=== PATIENT | female | born 2000 | race Caucasian/White ===

== ENCOUNTER → 2020-09-30 | Outpatient (CLI) | payer OTHER ==
--- NOTE | 2020-09-30 16:14 | REP ---
INDICATION: S/P FOOT INJURY R/O FX COMPARISON: None. TECHNIQUE: AP, lateral, bilateral oblique views right foot. FINDINGS: The osseous structures and joint spaces are intact and normal. There is no evidence for acute fracture or dislocation. Surrounding soft tissues are unremarkable. No subcutaneous emphysema or radiodense foreign body. IMPRESSION: . No acute fracture or dislocation. <Electronically signed by Wilton Hale > 09/30/20 [id number]
== END ==
LOC: M RAD 15:51
PROVIDERS: ATTEND Physician Assistant Medical
DX: S99.921A Unspecified injury of right foot, initial encounter (principal); X58.XXXA Exposure to other specified factors, initial encounter; Y92.89 Other specified places as the place of occurrence of the external cause

== ENCOUNTER 2021-05-12 19:46 | Outpatient (CLI) | payer OTHER ==
[~2021-05-12] VITALS: Ht 167.6 cm; Wt 116.0 kg
[2021-05-12 20:32] VITALS: BP 124/59
[2021-05-12 21:17] LABS: APPEARANCE, URINE HAZY (CLEAR); BACTERIA, URINE AUTO 2+ (NEGATIVE); BILIRUBIN, URINE AUTO NEGATIVE (NEGATIVE); BLOOD, URINE BLOOD NEGATIVE (NEGATIVE); COLOR, URINE STRAW (YELLOW); GLUCOSE, URINE (UA) AUTO NEGATIVE (NEGATIVE); KETONE, URINE AUTO NEGATIVE (NEGATIVE); LEUKOCYTE ESTERASE, URINE AUTO 3+ (NEGATIVE); NITRITE, URINE AUTO NEGATIVE (NEGATIVE); PROTEIN, URINE AUTO NEGATIVE (NEGATIVE); RBC, URINE AUTO 2 /HPF (0-3); SPECIFIC GRAVITY URINE AUTO 1.002 (1.002-1.035); SQUAMOUS EPITHELIAL CELL UR AU 3 /HPF (0-6); UROBILINOGEN, URINE AUTO 0.2 mg/dL (0.0-2.0); WBC, URINE AUTO 10 /HPF (0-3)
[2021-05-12 22:28] VITALS: BP 137/67
--- NOTE | 2021-05-13 01:29 | REPVR ---
PROCEDURE INFORMATION: Exam: US , Limited Exam date and time: 05/12/2021 11:56 PM Age: 20 years old Clinical indication: Other: contractions; ; Additional info: ctxs edwina twins/cervical length TECHNIQUE: Imaging protocol: Real-time ultrasound of the maternal uterus with image documentation. Exam focused on the clinical indication. COMPARISON: No relevant prior studies available. FINDINGS: Gestation: Twin viable intrauterine gestation. heart rate: heart rate of twin A is 147 bpm. heart rate of twin B is 153 bpm. Placenta: Anterior placenta. Amniotic fluid: Normal amount of amniotic fluid for twin A with deepest pocket measuring 4.4 cm. Normal amount of amniotic fluid for twin B with deepest pocket measuring 6.2 cm. DOPPLER: Umbilical artery Doppler: Umbilical artery resistive index for twin B is 0.67 with S/D ratio of 3. Umbilical artery resistive index for twin A is 0.66 with S/D ratio of 2.95. MATERNAL: Cervix: Cervical length is 5.3 cm. No placenta previa. IMPRESSION: Twin viable intrauterine gestation. Cervical length is 5.3 cm. No placenta previa. PROCEDURE INFORMATION: Exam: US Biophysical Profile Without Non-Stress Test Exam date and time: 05/12/2021 11:56 PM Age: 20 years old Clinical indication: Other: contractions; ; Additional info: ctxs edwina twins/cervical length TECHNIQUE: Imaging protocol: US biophysical profile without non-stress testing. COMPARISON: No relevant prior studies available. FINDINGS: BIOPHYSICAL PROFILE: Breathin/2 Gross body movements: 2/2 tone: 2/2 Qualitative amniotic fluid: 2/2 Biophysical Profile Score: 8/8 IMPRESSION: Biophysical profile score is 8 out of 8 for both twins. Electronically signed by: Chemo Rock On 05/13/2021 01:28:25 AM
--- NOTE | 2021-05-13 06:14 | IPNPDOC ---
Text Note Date of Service The patient was seen on 05/13/21. NOTE Item Value Date Time Fibronectin NEGATIVE 05/12/212058 Bad table Vital Signs Label Value Date Time Pulse 97 05/12/212227 Respiratory Rate 17 bpm 05/12/212227 Blood Pressure Assessment 137/67 (90) 05/12/212227 Source Automatic Cuff (NIBP) Blood Pressure Assessment 124/59 (80) 05/12/212031 Source Automatic Cuff (NIBP) Respiratory Rate 18 bpm 05/12/212031 Pulse 95 05/12/212031 Patient Temperature 98.2 degrees F 05/12/212031 Temperature Source Temporal 05/12/21203105/12/21 20 YO LMP 10/14/20EDC BY EARLY US 14.2 WEEKS 08/05/2021 SEEN IN TRIAGE HISTORY CONTRACTIONS AT 28 WEEKS NO VAGINAL BLEEDING NO LOSS OF FLUID . NOTED DI/DI TWINS RISK FACTORS DI/DI TWINS ANXIETY DEPRESION BMI 36.2 EXAMINATION NO ACUTE DISTRESS NO LOSS OF FLUID OR VAGINAL BLEEDING PLAN US RE BPP X 2 NST X 2 FFN IF STABLE MAINTAIN APPOINTMENT AND PATIENT DID NOT DO 28 WEEKS LABS IMPRESSED NEED TO DO DISCHARGE UNDELIVERED NAME: STEPHAN FOUNTAIN DATE OF : 2000 BUSINESS NUMBER: [id number] AGE: 20 SEX: F REPORT #: [id number] ROOM: [facility] TECHNOLOGIST: [facility] DOCTOR: Dionicio Camejo MD Ordered for Date&Time: 05/12/212052 cc: [~ rep ct ivnm] Service Date&Time: 05/12/21 1825 EXAMINATION REQUESTED: BPP W/O NON STRESS TEST REASON FOR PATIENT VISIT: LABOR CHECK REASON FOR EXAMINATION: CTXS Dahlia TWINS/CERVICAL LENGTH PROCEDURE INFORMATION: Exam: US , Limited Exam date and time: 05/12/2021 11:56 PM Age: 20 years old Clinical indication: Other: contractions; ; Additional info: ctxs dahlia twins/cervical length TECHNIQUE: Imaging protocol: Real-time ultrasound of the maternal uterus with image documentation. Exam focused on the clinical indication. COMPARISON: No relevant prior studies available. FINDINGS: Gestation: Twin viable intrauterine gestation. heart rate: heart rate of twin A is 147 bpm. heart rate of twin B is 153 bpm. Placenta: Anterior placenta. Amniotic fluid: Normal amount of amniotic fluid for twin A with deepest pocket measuring 4.4 cm. Normal amount of amniotic fluid for twin B with deepest pocket measuring 6.2 cm. DOPPLER: Umbilical artery Doppler: Umbilical artery resistive index for twin B is 0.67 with S/D ratio of 3. Umbilical artery resistive index for twin A is 0.66 with S/D ratio of 2.95. MATERNAL: Cervix: Cervical length is 5.3 cm. No placenta previa. IMPRESSION: Twin viable intrauterine gestation. Cervical length is 5.3 cm. No placenta previa. PROCEDURE INFORMATION: Exam: US Biophysical Profile Without Non-Stress Test Exam date and time: 05/12/2021 11:56 PM Age: 20 years old Clinical indication: Other: contractions; ; Additional info: ctxs dahlia twins/cervical length TECHNIQUE: Imaging protocol: US biophysical profile without non-stress testing. COMPARISON: No relevant prior studies available. FINDINGS: BIOPHYSICAL PROFILE: Breathin/2 Gross body movements: 2/2 tone: 2/2 Qualitative amniotic fluid: 2/2 Biophysical Profile Score: 8/8 IMPRESSION: Biophysical profile score is 8 out of 8 for both twins. Electronically signed by: Chemo Rock On 05/13/2021 01:28:25 AM DD: CHEMO ROCK MD 05/12/21 2356 DT: GILBERTO 05/13/21127 DS: MARY 05/13/21127 [~ rep ct labl] VS,Fishbone, I+O VS, Fishbone, I+O Vital Signs Date Time Temp Pulse Resp B/P (MAP) Pulse Ox O2 Delivery O2 Flow Rate FiO2 05/12/21 22:28 97 17 137/67 (90) Room Air 05/12/21 20:32 98.2 Dionicio Camejo MD May 13, 2021 00:54
== END 2021-05-13 00:15 | disposition home or self-care (01) ==
LOC: M LDO 19:46
PROVIDERS: ATTEND Obstetrics & Gynecology
DX: O30.043 Twin pregnancy, dichorionic/diamniotic, third trimester (principal); Z3A.28 28 weeks gestation of pregnancy; O60.03 Preterm labor without delivery, third trimester; O99.213 Obesity complicating pregnancy, third trimester; E66.9 Obesity, unspecified; O99.343 Other mental disorders complicating pregnancy, third trimester; F41.9 Anxiety disorder, unspecified; F32.9 Major depressive disorder, single episode, unspecified; Z79.899 Other long term (current) drug therapy; Z68.36 Body mass index [BMI] 36.0-36.9, adult
CPT/HCPCS: 59025; 76815; 76817; 76819; 76820; 81001; 82731; G0378; G0463

== ENCOUNTER 2021-07-23 07:23 | Inpatient (IN) | payer OTHER ==
[~2021-07-23] VITALS: Ht 167.6 cm; Wt 119.4 kg
[2021-07-23] VITALS (8 sets, daily range): BP systolic 108–138; BP diastolic 52–66
[~2021-07-23 07:23] MED LIST: ASPI81CH33 PO; BENA25CA4 PO; SERT25TA21 PO
[2021-07-23] MEDS ORDERED: PRENTAB9 PO (07:44)
[2021-07-23] MEDS ORDERED: TUMS500C PO (07:46)
[2021-07-23] MEDS ORDERED: HOME MED LIST COMPLETE! XX SCH (07:50)
[2021-07-23] MEDS ORDERED: OXYTOCIN DRIP 30 UNITS in IV 1 EA IV PRN ×4 (08:00)
[2021-07-23] MEDS ORDERED: ceFAZolin SOD 2 GM in IV 1 EA IV ONE (08:00)
[2021-07-23] MEDS ORDERED: LR 1,000 ML IV SCH ×3 (08:00→11:40)
[2021-07-23] MEDS ORDERED: BICITRA 30ML SOLN UDC PO ONE (08:00)
[2021-07-23 08:38] LABS: HEMATOCRIT 31.7 % (36.0-47.0); HEMOGLOBIN 9.9 g/dl (12.0-15.5); MEAN CORPUSCULAR HEMOGLOBIN 24.8 pg (27.0-33.0); MEAN CORPUSCULAR HGB CONC 31.2 g/dl (32.0-36.5); MEAN CORPUSCULAR VOLUME 79.4 fl (80.0-96.0); PLATELET COUNT, AUTOMATED 186 10^3/uL (150-450); RED BLOOD COUNT 3.99 10^6/uL (4.00-5.40); WHITE BLOOD COUNT 8.9 10^3/uL (4.0-10.0)
[2021-07-23] MEDS ORDERED: MORPHINE PRES-FREE INJ 10 MG/10 ML VIAL (J2274) As Ordered ONE (09:06)
[2021-07-23] MEDS ORDERED: OXYTOCIN 30 UNITS IN 0.9% NaCl 500ML IV BAG (J2590) As Ordered ONE ×2 (09:08→11:16)
[2021-07-23] MEDS ORDERED: PHENYLephrine 500MCG 5ML (100MCG/ML) SYRINGE As Ordered ONE (09:10)
[2021-07-23] MEDS ORDERED: ePHEDrine SULFATE 25 MG/5 ML(5MG/ML) SYRINGE As Ordered ONE ×3 (09:10→11:31)
[2021-07-23] MEDS ORDERED: KETOROLAC 60MG 2ML VIAL As Ordered ONE (09:10)
[2021-07-23] MEDS ORDERED: dexameTHASONE 4 MG/ML 1ML VIAL (J1100 PER 1MG) As Ordered ONE (09:10)
[2021-07-23] MEDS ORDERED: ONDANSETRON 4MG/2ML VIAL As Ordered ONE (09:10)
[2021-07-23] MEDS ORDERED: METOCLOPRAMIDE INJ 10MG/2ML VIAL (J2765 PER 1) IV PRN ×2 (09:37→11:40)
[2021-07-23] MEDS ORDERED: NALOXONE INJ 0.4MG/1ML VIAL (J2310 PER 1MG) IV PRN ×2 (09:37)
[2021-07-23] MEDS ORDERED: ONDANSETRON 4MG/2ML VIAL IV PRN ×3 (09:37→11:40)
[2021-07-23] MEDS ORDERED: NALBUPHINE HCL 10 MG/ML AMP (J2300) IV PRN (09:37)
[2021-07-23] MEDS ORDERED: diphenhydrAMINE 50MG/ML VIAL (J1200) IV PRN (09:37)
[2021-07-23 10:24] LABS: CORD GAS ABE A -6.1; CORD GAS HCO3 A 22.2 MEQ/L; CORD GAS O2 SAT A 29.6 %; CORD GAS PH A 7.224 UNITS; CORD GAS PO2 A 16.6 mmHg; CORD GAS TCO2 A 23.9 MEQ/L
[2021-07-23 10:28] LABS: CORD GAS ABE V -4.3; CORD GAS HCO3 V 21.1 MEQ/L; CORD GAS O2 SAT V 67.3 %; CORD GAS PCO2 V 40.1 mmHg; CORD GAS PH V 7.339 UNITS; CORD GAS PO2 V 27.6 mmHg; CORD GAS SBC V 20.2 MEQ/L; CORD GAS TCO2 V 22.3 MEQ/L
[2021-07-23 10:34] LABS: CORD GAS ABE V -5.3; CORD GAS HCO3 V 20.3 MEQ/L; CORD GAS O2 SAT V 79.2 %; CORD GAS PH V 7.324 UNITS; CORD GAS PO2 V 36.5 mmHg; CORD GAS SBC V 19.8 MEQ/L; CORD GAS TCO2 V 21.6 MEQ/L
[2021-07-23 10:37] LABS: CORD GAS ABE A -5.8; CORD GAS HCO3 A 23.8 MEQ/L; CORD GAS O2 SAT A 27.5 %; CORD GAS PCO2 A 64.8 mmHg; CORD GAS PH A 7.183 UNITS; CORD GAS PO2 A 17.4 mmHg; CORD GAS SBC A 18.2 MEQ/L; CORD GAS TCO2 A 25.8 MEQ/L
[2021-07-23] MEDS ORDERED: ACETAMINOPHEN 1000MG 100ML IV BTL (OFIRMEV) (J0131 PER 10MG) As Ordered ONE (10:48)
[2021-07-23] MEDS ORDERED: MORPHINE 2 MG/ML 1ML VIAL (J2270) IV PRN (11:10)
[2021-07-23] MEDS ORDERED: oxyCODONE 5MG TAB PO PRN (11:10)
[2021-07-23] MEDS ORDERED: SIMETHICONE 80MG CHEW TAB PO PRN (11:10)
[2021-07-23] MEDS ORDERED: PROMETHAZINE 25 MG TAB PO PRN (11:10)
[2021-07-23] MEDS ORDERED: MEASLES,MUMPS,RUBELLA VACCINE INJ (MMR-II) (90707) SC SCH (11:10)
[2021-07-23] MEDS ORDERED: RHOGAM 300 MCG (1500 IU) INJ (J2790) IM SCH (11:10)
[2021-07-23] MEDS ORDERED: ePHEDrine INJ 50 MG/ML VIAL IV STA (11:33)
[2021-07-23] MEDS ORDERED: LR 1,000 ML IV ONE (11:40)
[2021-07-23] MEDS ORDERED: fentaNYL 100 MCG/2 ML INJECTION (J3010) IV PRN (11:40)
[2021-07-23] MEDS ORDERED: PERCOCET 5MG/325MG TAB PO PRN (11:40)
[2021-07-23] MEDS ORDERED: ePHEDrine SULFATE 25 MG/5 ML(5MG/ML) SYRINGE IV STA (11:53)
[2021-07-23] MEDS ORDERED: OXYTOCIN DRIP 30 UNITS in IV 1 EA IV ONE (12:10)
--- NOTE | 2021-07-23 17:09 | ROOPDOC ---
[facility] Report Of Operation Report of Operation DATE OF PROCEDURE: 07/23/21 PREPROCEDURE DIAGNOSES: -dichorionic diamnionic twin -38+1 weeks gestation -anxiety -exercise induced asthma POSTPROCEDURE DIAGNOSES: status post primary low transverse delivery PROCEDURE PERFORMED: primary low transverse delivery SURGEON: Darryl Clemente DO [employer] LIBRARIAN: Sánchez Camejo MD ANESTHESIA: spinal ESTIMATED BLOOD LOSS: Approximately 700 mL. COMPLICATIONS: none REMARKS: see below FINDINGS: -Twin A delivered 1006 [id number] female 9/9 , 2640g, 5#3oz - Twin B delivered 1010 [id number] female 8/9 , 3090g, 6#13oz -normal appearing uterus, tubes and ovaries SPECIMENS REMOVED: none PROCEDURE NOTE: see below DESCRIPTION OF PROCEDURE: After obtaining informed consent, the patient was brought to the operating suite and prepped/draped in the usual sterile manner. A timeout was called and the patient name, date of and procedure to be performed were verified. Anesthesia was tested with an Allis clamp and found to be adequate. A transverse incision was made with the scalpel and this was carried down to the fascia which was scored. This was extended laterally with the Dubose scissors. The rectus muscles were dissected from the superior and inferior fascia both bluntly and sharply. The rectus muscles were and the peritoneum was entered bluntly. The bladder blade was placed and a bladder flap was created with the Metzenbaum scissors. A low transverse incision was made with the scalpel on the uterus which was then entered bluntly. Clear fluid was noted on rupture of membranes. The sacrum was delivered and the left and then right legs were delivered by flexing the hips. The left then right arms were delivered by sweeping them across the chest. Maxillary pressure maintained cephalic flexion and the head delivered without issue. The was suctioned and stimulated while the cord was clamped and cut. The was then handed to awaiting pediatrics team. Cord gases were obtained. The uterus was then explored, Twin B amniotic sac located and ruptured with clear fluid. Both feet were grasped and delivered. The body was delivered to the level of the shoulder blades then the left and then right arms were delivered by sweeping across the chest. Again maxillary pressure manuel ntained cephalic flexion and the head delivered without issue. The was suctioned and stimulated while the cord was clamped and cut. The was then handed to awaiting pediatrics team. Cord gases were obtained. Both placentas delivered spontaneously and intact. The uterus was exteriorized and the interior wiped with a laparotomy sponge. The hysterotomy was closed with running, locking 0-vicryl. A second imbricating layer of 0-vicryl was placed. One [id number] suture was placed in the middle of the hysterotomy for hemostasis. The posterior cul-de-sac was then irrigated. The uterus was returned to the abdomen. The hysterotomy was again inspected with hemostasis noted. The peritoneum was closed with running 3-0 vicryl. The fascia was closed with running 0-vicryl. The subcutaneous layer was irrigated then closed with 3-0 vicryl. The skin was closed with 4-0 monocryl. An Optifoam dressing was placed. All counts were correct. 1000 micrograms of cytotec were placed rectally for hemorrhage prophylaxis. Uterus was firm at U-1. Judie Ortiz was in good condition and being taken to the recovery room by anesthesia when I left the room. DO SAMAN Hyman BRADLEY J. DO Jul 23, 2021 11:19
[2021-07-23] MEDS: KETOROLAC 30 MG/ML 1ML VIAL IV SCH ×2 (17:49→23:31)
[2021-07-23] MEDS: ACETAMINOPHEN 500 MG TAB PO SCH ×2 (17:50→23:31)
[2021-07-24 02:00] VITALS: BP 107/57
[2021-07-24] MEDS: ACETAMINOPHEN 500 MG TAB PO SCH ×3 (05:45→17:12)
[2021-07-24] MEDS: KETOROLAC 30 MG/ML 1ML VIAL IV SCH (05:45)
[2021-07-24] MEDS ORDERED: DOCUSATE SODIUM 100MG CAPSULE PO PRN (06:00)
--- NOTE | 2021-07-24 06:34 | IPNPDOC ---
Progress Note Date of Service: Jul 24, 2021 Progress Note PREPROCEDURE DIAGNOSES: -dichorionic diamnionic twin -38+1 weeks gestation -anxiety -exercise induced asthma PROCEDURE PERFORMED: primary low transverse delivery -Twin A delivered 1006 [id number] female 9/9 , 2640g, 5#3oz - Twin B delivered 1010 [id number] female 8/9 , 3090g, 6#13oz SUBJECT: Judie Ortiz is a 20-year-old 2 now Para 2003 status post uncomplicated primary low transverse delivery at 38+1 weeks, doing well day # 1. She has been ambulating, voiding spontaneously without issue and tolerating regular diet. Breast feeding without issue. Reports lochia is small. OBJECTIVE: VITAL SIGNS: Within normal limits, afebrile. Alert and oriented times three. Breath sounds clear to auscultation. Heart rate: Regular rate and rhythm, no murmurs, rubs or gallops. Abdomen: Fundus firm at U-2. Soft, NTTP. Incision seen covered with Optifoam with minimal strikethrough Negative calf tenderness bilaterally ASSESSMENT: as above doing well on day 1. Vitals within normal li mits, afebrile, hemodynamically stable with no evidence of infection. PLAN: 1. Discharge to home likely tomorrow 2. Tylenol, Motrin and oxycodone for pain. 3. Encourage breast feeding and ambulation. 4. Undecided for contraception 5. Routine PP visit at 2 and 6 weeks in clinic. VS, I&O, 24H, Fishbone Vital Signs/I&O Vital Signs Date Time Temp Pulse Resp B/P (MAP) Pulse Ox O2 Delivery O2 Flow Rate FiO2 07/24/21 02:00 97.2 72 16 107/57 (74) 98 Room Air I&O- Last 24 Hours up to 6 AM 07/24/21 05:59 Intake Total 1500 ml Output Total 2350 ml Balance -850 ml Laboratory Data 24H LABS Laboratory Tests 2 07/23/21 08:17: Nucleated Red Blood Cells % (auto) 0.0, Syphilis Serology NONREACTIVE 07/23/21 10:12: Cord Arterial Blood pH 7.224, Cord Arterial Blood PCO2 55.0, Cord Arterial Blood PO2 16.6, Cord Arterial Blood HCO3 22.2, Cord Arterial Blood Total CO2 23.9, Cord Arterial Blood Base Excess -6.1, Cord Arterial Base Excess (Standard 18.0, Cord Arterial Bld Oxygen Saturation 29.6, Cord Venous Blood pH 7.339, Cord Venous Blood PCO2 40.1, Cord Venous Blood PO2 27.6, Cord Venous Blood HCO3 21.1, Cord Venous Blood Total CO2 22.3, Cord Venous Base Excess (Actual) -4.3, Cord Venous Base Excess (Standard) 20.2, Cord Venous Blood Oxygen Saturation 67.3 CBC/BMP Laboratory Tests 07/23/21 08:17 PRAVIN DAVISON DO Jul 24, 2021 06:30
[2021-07-24 08:28] LABS: HEMATOCRIT 24.6 % (36.0-47.0); MEAN CORPUSCULAR HEMOGLOBIN 24.8 pg (27.0-33.0); MEAN CORPUSCULAR HGB CONC 31.3 g/dl (32.0-36.5); MEAN CORPUSCULAR VOLUME 79.4 fl (80.0-96.0); PLATELET COUNT, AUTOMATED 132 10^3/uL (150-450); WHITE BLOOD COUNT 12.6 10^3/uL (4.0-10.0)
[2021-07-24] MEDS: PRENATAL VITAMINS CHEWABLE TABLET PO SCH (08:33)
[2021-07-24 08:35] LABS: HEMOGLOBIN 7.7 g/dl (12.0-15.5)
[2021-07-24] MEDS: SERTRALINE HCL 25 MG TABLET PO SCH (08:55)
[2021-07-24 10:00] VITALS: BP 116/54
[2021-07-24 14:00] VITALS: BP 117/68
[2021-07-24] MEDS: IBUPROFEN 800 MG TAB PO SCH ×2 (14:20→22:06)
[2021-07-24 17:45] VITALS: BP 132/78
[2021-07-24 22:00] VITALS: BP 117/55
[2021-07-25] MEDS: ACETAMINOPHEN 500 MG TAB PO SCH ×3 (00:04→12:11)
[2021-07-25] MEDS: oxyCODONE 5MG TAB PO PRN ×2 (00:11→09:43)
[2021-07-25 02:00] VITALS: BP 116/54
[2021-07-25 06:00] VITALS: BP 137/60
[2021-07-25] MEDS: IBUPROFEN 800 MG TAB PO SCH ×2 (06:04→14:22)
[2021-07-25] MEDS ORDERED: COLA100C5 PO (06:40)
[2021-07-25] MEDS ORDERED: IBUP80TA PO (06:40)
[2021-07-25] MEDS ORDERED: OXYC-517 PO (06:40)
[2021-07-25] MEDS ORDERED: SERT25TA21 PO (06:40)
[2021-07-25] MEDS: PRENATAL VITAMINS CHEWABLE TABLET PO SCH (09:33)
[2021-07-25] MEDS: SERTRALINE HCL 25 MG TABLET PO SCH (09:33)
--- NOTE | 2021-07-25 11:32 | DSES ---
DISCHARGE SUMMARY DATE OF ADMISSION: 07/23/2021 DATE OF DISCHARGE: 07/25/2021 This lady is a 20-year-old 2, para 3 admitted for primary section for di/di twins, delivered a live twin A female, 5 pounds 3 ounces, 2640 grams, scores of 9 and 9 at one and five minutes respectively, arterial pH 7.18, base excess -5.8; twin B female, 3090 grams, 6 pounds 13 ounces, scores of 8 and 9 at one and five minutes respectively, arterial pH 7.22, base excess -4.3.. On discharge day, we discussed phlebitis, cystitis, mastitis, endometritis, cellulitis, diet, exercise, pain management, perineal, breast and wound care. On discharge, her blood pressure 137/60, respirations 20, pulse 73, temperature 97.9. Her admitting hemoglobin 9.9, hematocrit 31.7, platelets 186. Discharge hemoglobin 7.7, hematocrit 24.6 and platelets were 132 and she is asymptomatic. The rest of the examination is unremarkable. Normocephalic, atraumatic. Neck full range of motion. Pupils equal and reactive to light. Distal pulses are symmetric. No evidence of deep venous thrombosis (DVT). pulmonary embolism (PE) or superficial phlebitis. CHEST: Clear bilaterally to bases. No wheezes or rhonchi. No costovertebral angle (CVA) tenderness. ABDOMEN: Soft. Four quadrant bowel sounds are noted. Incision is clean and dry. No rashes, lesions or pruritus. No arthralgias or myalgias. No complaint of joint pain. No complaint of cough, wheeze, shortness of breath, or dyspnea on exertion. No nausea, vomiting, diarrhea or constipation. No urgency or frequency. Summary of a term gestation delivered by section, di/di twins. The patient is to miner pick medications up at [place], two week incision check [facility], six week [facility]. All questions were answered, 20 minute discussion. Patient was discharged improved.
== END 2021-07-25 14:25 | disposition home or self-care (01) | DRG 773 ==
LOC: M LDI 07:23 → M OBS 12:50
PROVIDERS: ADMIT Obstetrics & Gynecology; ATTEND Obstetrics & Gynecology
PROC: 10D00Z1 Extraction of Products of Conception, Low, Open Approach (ICD-10-PCS; principal; 2021-07-23 09:30)
DX: O30.043 Twin pregnancy, dichorionic/diamniotic, third trimester (principal); Z3A.38 38 weeks gestation of pregnancy; Z37.2 Twins, both liveborn; O99.344 Other mental disorders complicating childbirth; F41.9 Anxiety disorder, unspecified